=== PATIENT | male | born 1995 | race Caucasian/White ===

== ENCOUNTER 2018-03-17 02:13 | Emergency (ER) | payer SELFPAY ==
[~2018-03-17] VITALS: Ht 177.8 cm; Wt 64.0 kg
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
[2018-03-17] MEDS ORDERED: IBUPROFEN 600 MG TABLET PO ONE (02:30)
[2018-03-17] MEDS ORDERED: IBUPROFEN 600 MG TABLET ONE (02:32)
[2018-03-17] MEDS ORDERED: SULFAMETH/TRIMETH 800/160 MG TABLET PO ONE (03:30)
[2018-03-17] MEDS ORDERED: SULFAMETH/TRIMETH 800/160 MG TABLET ONE (03:33)
[2018-03-17] MEDS ORDERED: HYDROCODONE/APAP 10-325 MG TABLET ONE (03:37)
--- NOTE | 2018-03-17 03:41 | NUR ---
Patient discharged to home in stable conditon WITH BROTHER TAKING PATIENT HOME. Written and verbal after care instructions given. Patient verbalizes understanding of instructions. WALKED OUT OF ER WITH NO DISTRESS NOTED
[2018-03-17 03:43] VITALS: BP 128/88
[2018-03-17] MEDS ORDERED: HYDROCODONE/APAP 10-325 MG TABLET PO ONE (03:45)
== END 2018-03-17 03:50 | disposition home or self-care (01) ==
LOC: ER 02:17
DX: L03.115 Cellulitis of right lower limb (principal); Z88.1 Allergy status to other antibiotic agents
CPT/HCPCS: 73590; 93971; 99284; A4663